=== PATIENT | female | born 1965 | race Caucasian/White ===

== ENCOUNTER → 2017-11-06 | Outpatient (CLI) | payer OTHER ==
--- NOTE | 2017-11-08 10:15 | MM ---
Reason for exam: screening (asymptomatic). Last mammogram was performed 5 years and 6 months ago. History: Patient is postmenopausal. Physical Findings: A clinical breast exam by your physician is recommended on an annual basis and results should be correlated with mammographic findings. MG Screening Mammo w CAD Bilateral CC and MLO view(s) were taken. Prior study comparison: May 11, 2012, mammogram, performed at [facility]. The breast tissue is heterogeneously dense. This may lower the sensitivity of mammography. Grouped punctate right breast calcifications were present previously, slightly increased. Bilateral breast nodularity is increased. ASSESSMENT: Incomplete: need additional imaging evaluation, BI-RAD 0 RECOMMENDATION: Special view mammogram of both breasts. If lesion persists on supplemental views, image directed ultrasound is recommended. [facility] will attempt to contact patient to return for supplemental views and ultrasound if indicated.
== END | disposition home or self-care (01) ==
LOC: RADMAMWWP 14:29
PROVIDERS: ATTEND Obstetrics & Gynecology
DX: Z12.31 Encounter for screening mammogram for malignant neoplasm of breast (principal)
CPT/HCPCS: 77067

== ENCOUNTER → 2017-11-16 | Outpatient (CLI) | payer OTHER ==
--- NOTE | 2017-11-16 14:47 | MM ---
Reason for exam: additional evaluation requested from abnormal screening. Last mammogram was performed less than 1 month ago. History: Patient is postmenopausal. Physical Findings: Nurse Summary: 1cm nodule in the right breast at 12 o'clock (nurse josselin). MG Work Up Mamm w CAD BILAT Bilateral spot compression CC, spot compression MLO, and LM view(s) were taken. Prior study comparison: November 06, 2017, bilateral MG screening mammo w CAD. May 11, 2012, mammogram, performed at [facility]. The breast tissue is heterogeneously dense. This may lower the sensitivity of mammography. Finding: There is a 8 mm circumscribed oval mass located 5 cm from the nipple in the upper inner quadrant, posterior position of the right breast consistent with cyst on ultrasound. Focal asymmetry x 2. There are a couple of subcentimeter densities on left CC, likely benign. Short term follow up recommended. New finding since May 11, 2012. These results were verbally communicated with the patient and result sheet given to the patient on 11/16/17. ASSESSMENT: Incomplete: need additional imaging evaluation, BI-RAD 0 RECOMMENDATION: Ultrasound of the right breast.
--- NOTE | 2017-11-16 14:48 | USB ---
Reason for exam: additional evaluation requested from abnormal screening. History: Patient is postmenopausal. US Breast Workup Limited RT Right limited breast ultrasound including focal area of concern, retroareolar and axilla demonstrates a 0.9 x 1.2 x 0.7cm cystic lesion at 1 o'clock. These results were verbally communicated with the patient and result sheet given to the patient on 11/16/17. ASSESSMENT: Benign, BI-RAD 2 RECOMMENDATION: Follow-up diagnostic mammogram in 6 months. (left breast)
== END | disposition home or self-care (01) ==
LOC: RADMAMWWP 12:59
PROVIDERS: ATTEND Obstetrics & Gynecology
DX: R92.8 Other abnormal and inconclusive findings on diagnostic imaging of breast (principal)
CPT/HCPCS: 77066

== ENCOUNTER → 2018-08-03 | Outpatient (CLI) | payer OTHER ==
--- NOTE | 2018-08-03 09:38 | MM ---
Reason for exam: follow-up at short interval from prior study. Last mammogram was performed 9 months ago. History: Patient is postmenopausal. Physical Findings: Nurse Summary: 1cm nodule in the right breast at 1 o'clock (nurse mj). MG Diagnostic Mammo w CAD CHUCKIE Bilateral CC and MLO view(s) were taken. Prior study comparison: November 16, 2017, bilateral MG work up mamm w CAD BILAT. November 06, 2017, bilateral MG screening mammo w CAD. Finding: There is a typically benign 10 mm equal density (isodense), circumscribed, partially obscured oval mass located 5 cm from the nipple in the upper outer quadrant, posterior position, previous cyst increased in size. There is no discrete abnormality including area of concern. Left upper inner quadrant patient reported palpable. New finding since November 16, 2017 and November 06, 2017. These results were verbally communicated with the patient and result sheet given to the patient on 08/03/18. ASSESSMENT: Incomplete: need additional imaging evaluation, BI-RAD 0 RECOMMENDATION: Ultrasound of both breasts.
--- NOTE | 2018-08-03 09:41 | USB ---
Reason for exam: additional evaluation requested from abnormal screening. History: Patient is postmenopausal. US Breast Limited BILAT Right limited breast ultrasound including focal area of concern, retroareolar and axilla demonstrates a 10 x 8 x 12mm lobular, mixed, hypoechoic lesion at 1 o'clock BB and a 9 x 4 x 9mm lobular, hypoechoic lesion at 1 o'clock. Left limited breast ultrasound including focal area of concern, retroareolar and axilla demonstrates no cystic or solid lesion seen. These results were verbally communicated with the patient and result sheet given to the patient on 08/03/18. ASSESSMENT: Suspicious, BI-RAD 4 RECOMMENDATION: Ultrasound core biopsy of the right breast. Manage on a clinical basis with regard to left palpable. (two adjacent lesions right breast) Called Dr. Sims with mammographic findings and has scheduled an appointment for the patient for 08/20/18 at 9:[address] Lal. Biopsy scheduled for 08/13/18 at 12:20. PRELIMINARY REPORT CALLED AND FAXED TO DR. LAL ON 08/03/18.
== END | disposition home or self-care (01) ==
LOC: RADMAMWWP 06:56
PROVIDERS: ATTEND Obstetrics & Gynecology
DX: R92.8 Other abnormal and inconclusive findings on diagnostic imaging of breast (principal)
CPT/HCPCS: 77066

== ENCOUNTER → 2018-08-13 | Day surgery (SDC) | payer OTHER ==
[2018-08-13 11:40] VITALS: RESP 16; BMI 25.4
[2018-08-13 13:07] VITALS: BP 128/82; PULSE 61; TEMP 97.8
--- NOTE | 2018-08-13 13:20 | USB ---
EXAMINATION TYPE: US biopsy breast VAD RT, MG diagnostic mammo RT wo CAD DATE OF EXAM: 08/13/2018 CLINICAL HISTORY: R92.8 ABNORMAL MAMMOGRAM. TECHNIQUE: Ultrasound guided core biopsy of right breast. COMPARISON: Mammogram and ultrasound dated 08/03/2018 FINDINGS: The procedure of ultrasound guided core biopsy was explained to the patient. Benefits, alternatives, and risks were discussed. An informed consent was then obtained. Preprocedural timeout was performed. The patient was placed in supine positioning for imaging and for the procedure. The overlying skin was prepped and draped in usual sterile fashion. 10 cc of 1% lidocaine was used as anesthetic into the skin and subcutaneous tissue the 2 adjacent masses at the 1:00 position in the right breast. Under ultrasound guidance, a 12-gauge vacuum assisted biopsy gun device was used to obtain 4 core samples of both masses. Following this, a ribbon-shaped biopsy marker was left at directly between the 2 masses (total dimension of both masses measures 2.4 cm). The patient tolerated the procedure well without any immediate complication. The patient was kept in the radiology department for short stay after the procedure and then discharged home in stable condition. Postprocedure mammogram demonstrates appropriate biopsy marker placement. IMPRESSION: Successful, uncomplicated ultrasound guided core biopsy of 2 adjacent masses at the 1:00 position in the right breast, full pathology results to follow. Pathology Results: Malignant RIGHT BREAST, 1:00, ULTRASOUND GUIDED CORE BIOPSY: Minute severely atypical cellular foci suspicious for poorly differentiated carcinoma, limited for further characterization. See note. Recommendation Surgical consult of the right breast. Excision and definitive surgical care. SCOOTER
== END ==
LOC: RADUSWWP 11:13
PROVIDERS: ATTEND Surgery
DX: N60.11 Diffuse cystic mastopathy of right breast (principal); R92.8 Other abnormal and inconclusive findings on diagnostic imaging of breast; Z88.0 Allergy status to penicillin; Z88.2 Allergy status to sulfonamides
CPT/HCPCS: 88305; 88342; 88341; 77065; 19083; A4648; J2001

== ENCOUNTER 2018-09-06 10:56 | Day surgery (SDC) | payer OTHER ==
[2018-09-04 08:28] VITALS: BMI 26.4
[~2018-09-06 10:56] MED LIST: DEXAMETHASONE SOD PHOSPHATE 10 MG/ML 1 ML VIAL IV ONE; KETOROLAC 30 MG/ML 1 ML VIAL IVP SCH; LACTATED RINGERS 1,000 ML IV SCH; LIDOCAINE 1% 20 ML VIAL (10MG/ML) FOR IV START INTRADERMA PRN; ONDANSETRON 4 MG/2 ML VIAL IVP ONE; ONDANSETRON 4 MG/2 ML VIAL IVP PRN; Pre Op ABX Message 1 EACH MISC MISCELLANE ONE; SCOPOLAMINE 1.5MG/72HR PATCH TRANSDERM ONE
[2018-09-06 11:45] LABS: Glucose,Whole Blood 111 mg/dL (75-99)
[2018-09-06] MEDS ORDERED: LORazepam 2 MG/ML INJ IV ONE (11:58)
[2018-09-06] MEDS ORDERED: LIDOCAINE 1% INJ 10MG/ML (20 ML MDV) SQ ONE (12:38)
[2018-09-06] MEDS ORDERED: SUCCINYLCHOLINE CHLORIDE 100 MG/5 ML SYR IV ONE (13:30)
[2018-09-06] MEDS ORDERED: HYDROmorphone (PF) 1 MG/ML ONE (13:30)
[2018-09-06] MEDS ORDERED: fentaNYL (PF) 50 MCG/ML 2 ML AMP ONE (13:30)
[2018-09-06] MEDS ORDERED: LIDOCAINE 1% INJ 10MG/ML (20 ML MDV) ONE (13:30)
[2018-09-06] MEDS ORDERED: PROPOFOL 10 MG/ML 20 ML VIAL IV ONE (13:30)
[2018-09-06] MEDS ORDERED: MIDAZOLAM 2 MG/2 ML VIAL ONE (13:30)
--- NOTE | 2018-09-06 13:33 | NM ---
EXAMINATION TYPE: NM sentinel node injection DATE OF EXAM: 09/06/2018 COMPARISON: 08/13/2018 HISTORY: Right breast cancer TECHNIQUE AND FINDINGS: The procedure of sentinel lymph node injection was explained to the patient. The benefits, alternatives, and risks were discussed. An informed consent was then obtained. Overlying skin is cleaned with sterile alcohol. Following this, 501 uCi Tc99m Tilmanocept was inject ed in the upper outer aspect of the right nipple intradermally. The patient tolerated the procedure well without any immediate complication. The patient was kept in the radiology department for short stay after the procedure and then taken to surgery for surgical p rocedure what is presumed intraoperative gamma probe will be used for sentinel lymph node detection. IMPRESSION: Right breast radiotracer injection for sentinel node localization as above.
[2018-09-06] MEDS ORDERED: CLINDAMYCIN 150 MG/ML 4 ML VIAL IVPB ONE (13:45)
[2018-09-06] MEDS ORDERED: LIDOCAINE (PF) 10 MG/ML 2 ML VIAL SQ ONE ×2 (13:55)
[2018-09-06 15:11] VITALS: TEMP 97
--- NOTE | 2018-09-06 15:11 | P.OP ---
Date of Procedure: 09/06/18 Preoperative Diagnosis: Malignancy of right breast Postoperative Diagnosis: Malignancy of right breast Procedure(s) Performed: Right breast lumpectomy with needle localization Hammon node biopsy Anesthesia: GARRETTA Surgeon: Evelyn Scanlon Pathology: other (Hammon node #1 and #2, right breast mass, Additional superior lateral margin) Condition: stable Disposition: same day Indications for Procedure: 52-year-old female was found to have an abnormal mammogram and further imaging and biopsy were recommended. On biopsy, the patient was found to have an invasive type of cancer, however type was uncertain. The patient's case was discussed in tumor board. The patient was offered multiple options in her care. Option of additional core biopsy for further ER and NE testing was offered to the patient. The patient opted instead for a lumpectomy with sentinel node biopsy. She was explained the risks, benefits and alternatives to the procedure. She did provide consent prior to attending the operating suite. Operative Findings: Palpable right breast mass Hammon node 2, both negative on frozen section per pathology Description of Procedure: The patient was brought into the operating suite and placed in supine position on the operating table. Sedation was provided by anesthesia and the patient underwent endotracheal intubation. Methylene blue was then infused inferior areolar. The breast was palpated and massaged after this was placed. The patient was then prepped and draped in regular sterile fashion. A probe was used to elicit the signal from the right axilla. An incision was made over the active site. Dissection was carried towards the signal using the probe and electrocautery. The lymph node was clearly visualized and was noted to be blue. This was noted to have a very strong signal. Additional small lymph node was also noted and excised. Hemostasis was maintained. The right axilla was then packed with a Ray-Augustus and attention was turned to the right breast. A curvilinear incision was made at the needle localization site. Dissection was carried towards the breast tissue using electrocautery. The localized wire was then grasped and removed through the insertion site on the skin. Dissection was then carried in a 360 manner towards the tip of the needle. The palpable mass was clearly noted. The lesion was then excised using electrocautery. The lesion was tagged with a short superior and a long lateral suture. On palpation, the superior lateral margin was noted to have some scarring, likely secondary to the breast biopsy. Further excision was made of the site and was sent as a superior lateral margin. Hemostasis was maintained. Incision site was closed using a 30 and 4-0 Vicryl subcuticular suture. Ray-Augustus was removed from the right axilla and hemostasis was noted to be maintained. The right axillary incision was also closed with a 3-0 and 4-0 Vicryl subcuticular suture in layers. Sterile dressing was applied. The patient was awakened in the operating suite and taken to postanesthesia care unit in stable condition.
--- NOTE | 2018-09-06 15:15 | USB ---
EXAMINATION TYPE: US breast localization RT, MG surgical specimen RT, MG diagnostic mammo RT wo CAD DATE OF EXAM: 09/06/2018 COMPARISON: 08/13/2018 CLINICAL HISTORY: R92.8 ABNORMAL MAMMOGRAM. FINDINGS: The procedure of needle localization with wire placement and than surgical excision was explained to the patient. Benefits, alternatives, and risks were discussed. An informed consent was then obtained. Preprocedural timeout was performed. The masses measuring 2.4 cm in total were localized sonographically at the 1:00 position in the right breast. The overlying skin was prepped and draped in usual sterile fashion. 10 cc of 1% lidocaine was used as anesthetic into the skin and subcutaneous tissue up to the level of area of concern. A 7 cm needle was used. It was placed under direct sonographic guidance with confirmatory images saved. At this point, wire was placed and the needle was withdrawn. The wire was fixed to patient's skin. Subsequent CC and ML mammograms show the needle to be in satisfactory position relative to the targeted area. Images were marked for surgeon. The patient tolerated the procedure well without any immediate complication. The patient was kept in the radiology department for short stay after the procedure and then taken to surgery for surgical excision. Targeted density, ribbon-shaped biopsy marker and wire are identified in specimen mammogram. The patient was kept in hospital for short stay after the procedure and then discharged home in stable condition. IMPRESSION: Successful, uncomplicated needle localization with wire placement and surgical excision of the biopsy-proven right breast cancer and ribbon-shaped biopsy marker, full pathology results to follow. Pathology Results: Malignant A. SENTINEL LYMPH NODE #1, BIOPSY: One benign lymph node as examined by H+E as well as appropriately controlled immunohistochemical studies for cytokeratin 7 and CITLALY. B. SENTINEL LYMPH NODE #2, BIOPSY: One benign lymph node as examined by H+E as well as appropriately controlled immunohistochemical studies for cytokeratin 7 and CITLALY. C. RIGHT BREAST, LEFT SUPERIOR LATERAL MARGIN, BIOPSY: Benign fibroadipose tissue. D. RIGHT BREAST MASS, WIRE LOCALIZATION LUMPECTOMY: 2.4 x 1.2 x 0.7 cm high grade ductal carcinoma associated with lymphocytic response. Completely excised (closest yellow inked medial margin is 1.5 mm). Surrounding breast parenchyma - negative for duct carcinoma. See Surgical Pathology Cancer Case Summary. Recommendation Surgical consult of the right breast. (Continued surgical care). MTDD
[2018-09-06] MEDS: HYDROmorphone 0.5 MG/0.5 ML SYRINGE IVP PRN ×2 (15:20→15:24)
[2018-09-06] MEDS ORDERED: LACTATED RINGERS 1,000 ML IV ONE (15:43)
[2018-09-06] MEDS ORDERED: HYDROcodone/APAP 5-325MG 1 EACH TAB PO ONE (15:55)
[2018-09-06 16:08] VITALS: RESP 18
[2018-09-06] MEDS ORDERED: METOCLOPRAMIDE 5 MG/ML 2 ML VIAL IVP ONE (16:24)
[2018-09-06 16:54] VITALS: BP 118/76; PULSE 60
== END 2018-09-06 17:30 | disposition home or self-care (01) ==
LOC: OR 10:56
PROVIDERS: ATTEND Surgery
DX: C50.211 Malignant neoplasm of upper-inner quadrant of right female breast (principal); J45.909 Unspecified asthma, uncomplicated; M06.9 Rheumatoid arthritis, unspecified; M19.90 Unspecified osteoarthritis, unspecified site; K21.9 Gastro-esophageal reflux disease without esophagitis; M79.7 Fibromyalgia; K58.9 Irritable bowel syndrome, unspecified; F32.9 Major depressive disorder, single episode, unspecified; Z90.49 Acquired absence of other specified parts of digestive tract; Z79.52 Long term (current) use of systemic steroids; Z79.899 Other long term (current) drug therapy; Z88.0 Allergy status to penicillin; Z88.2 Allergy status to sulfonamides
CPT/HCPCS: 19301; 38525; 19285; 38792; 88307; 88331; 88342; 88341; 77065; 76098; A9520; J2250; J2060; J2001 ×2; J2765; J2405; J3010; J1170 ×2; J0330; J2704

== ENCOUNTER 2018-09-25 06:20 | Day surgery (SDC) | payer OTHER ==
[2018-09-21 17:37] VITALS: BMI 27.8
[~2018-09-25 06:20] MED LIST changes: -DEXAMETHASONE SOD PHOSPHATE 10 MG/ML 1 ML VIAL IV ONE; +HEPARIN SODIUM,PORCINE 5,000 UNIT/ML 1 ML VIAL SQ ONE; -KETOROLAC 30 MG/ML 1 ML VIAL IVP SCH; +MORPHINE SULFATE 2 MG/ML SYRINGE IV PRN; -SCOPOLAMINE 1.5MG/72HR PATCH TRANSDERM ONE
[2018-09-25 07:01] VITALS: RESP 18; TEMP 98.6
[2018-09-25 07:16] LABS: Glucose,Whole Blood 109 mg/dL (75-99)
[2018-09-25] MEDS ORDERED: MIDAZOLAM 2 MG/2 ML VIAL ONE (07:21)
[2018-09-25] MEDS ORDERED: fentaNYL (PF) 50 MCG/ML 2 ML AMP ONE (07:21)
[2018-09-25] MEDS ORDERED: LIDOCAINE 1% INJ 10MG/ML (20 ML MDV) ONE (07:21)
[2018-09-25] MEDS ORDERED: KETAMINE 10 MG/ML 20 ML VIAL ONE (07:21)
[2018-09-25] MEDS ORDERED: PROPOFOL 10 MG/ML 20 ML VIAL IV ONE (07:21)
[2018-09-25] MEDS ORDERED: BUPIVACAINE (PF) 0.25% 30 ML VIAL SQ ONE (07:51)
[2018-09-25] MEDS ORDERED: HEPARIN SODIUM,PORCINE 100 UNIT/ML 5 ML VIAL IV ONE ×2 (07:51)
--- NOTE | 2018-09-25 08:29 | P.OP ---
Date of Procedure: 09/25/18 Preoperative Diagnosis: Invasive ductal breast carcinoma Postoperative Diagnosis: Invasive ductal breast carcinoma Procedure(s) Performed: Mediport placement with fluoroscopic guidance Anesthesia: MAC Surgeon: Evelyn Scanlon Pathology: none sent Condition: stable Disposition: same day Indications for Procedure: 52-year-old female with recent diagnosis of invasive ductal breast carcinoma, triple negative. Secondary to this, patient has undergone lumpectomy with sentinel node biopsy. After evaluation with oncology, the patient has been recommended to have a Mediport placement. She presents today for Mediport placement. Risks, benefits and alternatives were provided to the patient. She did provide consent prior to attending the operating suite. Operative Findings: Mediport in appropriate position under fluoroscopy imaging. Appropriate flush and withdrawal from Mediport Description of Procedure: The patient was brought into the operating suite and placed in supine position on the operating table. The patient was then sedated by anesthesia and prepped and draped in regular sterile fashion. The left subclavian vein was accessed with an introducer needle and dark nonpulsatile blood was withdrawn. A guidewire was then placed and was noted in appropriate position based on fluoroscopy. An incision was made just below the guidewire entrance site to create a pocket for the port. Dissection was carried towards the prepectoral fascia and an appropriate amount of space was created for port placement. A small incision was made at the guidewire entrance site and a dilator sheath was placed over the guidewire under fluoroscopic guidance. A catheter was then placed through the dilator sheath and was noted to be in appropriate placement based on fluoroscopy. The catheter was then attached to the port and locked into place. The port was placed into the created pocket. Appropriate flush and withdrawal was noted using a Lopez needle. The port was then secured into place using 2-0 Prolene suture 2. Heparin lock was then placed. The incision site was closed in layers with 3-0 and 4-0 Vicryl suture. The patient was awakened in the operating suite and taken to postanesthesia care unit in stable condition.
--- NOTE | 2018-09-25 09:01 | XR ---
EXAMINATION TYPE: XR chest 1V portable DATE OF EXAM: 09/25/2018 COMPARISON: NONE HISTORY: Status post Mediport placement TECHNIQUE: Single frontal view of the chest is obtained. FINDINGS: There is a Mediport in the left upper chest with catheter coursing via left subclavian mandeep alvarez to the level of the confluence of the innominate veins. No evident pneumothorax or pleural effu yomaira. Heart is within normal limits. IMPRESSION: No evident calcifications status post Mediport placement. Tip as described.
[2018-09-25 09:25] VITALS: BP 130/76; PULSE 67
--- NOTE | 2018-09-25 11:39 | FL ---
Fluoroscopy HISTORY: Port-A-Cath insertion 27 seconds fluoroscopy time supplied to the referring clinician. 1 intraoperative C-arm images docum ent the procedure. See dictated report from general surgery.
== END 2018-09-25 09:39 | disposition home or self-care (01) ==
LOC: OR 06:20
PROVIDERS: ATTEND Surgery
DX: C50.911 Malignant neoplasm of unspecified site of right female breast (principal); Z88.0 Allergy status to penicillin; Z88.2 Allergy status to sulfonamides; F32.9 Major depressive disorder, single episode, unspecified; Z90.49 Acquired absence of other specified parts of digestive tract; Z17.1 Estrogen receptor negative status [ER-]
CPT/HCPCS: 77001; 71045; 36571; C1788; J2250; J1644; J1642; J2405; J2001; J3010; J2704

== ENCOUNTER → 2018-09-26 | Outpatient (CLI) | payer OTHER ==
--- NOTE | 2018-09-27 09:56 | ECHOF ---
Referral Reason:Breast ca C50.411, Z01.818 Pre chemo MEASUREMENTS -------- HEIGHT: 165.1 cm WEIGHT: 75.7 kg BP: RVIDd: 2.5 cm (< 3.3) IVSd: 1.0 cm (0.6 - 1.1) LVIDd: 3.5 cm (3.9 - 5.3) LVPWd: 1.1 cm (0.6 - 1.1) IVSs: 1.6 cm LVIDs: 1.6 cm LVPWs: 1.6 cm LAESV Index (A-L): 25.48 ml/m Ao Diam: 2.4 cm (2.0 - 3.7) AV Cusp: 1.9 cm (1.5 - 2.6) LA Diam: 3.6 cm (2.7 - 3.8) MV EXCURSION: 14.924 mm (> 18.000) MV EF SLOPE: 100 mm/s (70 - 150) EPSS: 0.4 cm MV E Azar: 1.21 m/s MV DecT: 163 ms MV A Azar: 1.17 m/s MV E/A Ratio: 1.04 RAP: 5.00 mmHg RVSP: 19.40 mmHg FINDINGS -------- Sinus rhythm. This was a technically good study. The left ventricular size is normal. Left ventricular wall thickness is normal. Overall left vent ricular systolic function is normal with, an EF between 55 - 60 %. The diastolic filling pattern is normal for the age of the patient 13.63. The right ventricle is normal in size. The left atrial size is normal. Normal LA size by volume 22+/-6 ml/m2. The right atrial size is normal. Interatrial and interventricular septum intact. The aortic valve is trileaflet and appears structurally normal. The mitral valve is normal. Mild mitral regurgitation is present. The tricuspid valve appears structurally normal. Trace tricuspid regurgitation present. Right ariana tricular systolic pressure is normal at < 35 mmHg. There is no pulmonic regurgitation present. The aortic root size is normal. Normal inferior vena cava with normal inspiratory collapse consistent with estimated right atrial pre ssure of 5 mmHg. There is no pericardial effusion. CONCLUSIONS -------- 1. Sinus rhythm. 2. This was a technically good study. 3. The left ventricular size is normal. 4. Left ventricular wall thickness is normal. 5. Overall left ventricular systolic function is normal with, an EF between 55 - 60 %. 6. The diastolic filling pattern is normal for the age of the patient 13.63 7. The right ventricle is normal in size. 8. The left atrial size is normal. 9. Normal LA size by volume 22+/-6 ml/m2. 10. The right atrial size is normal. 11. Interatrial and interventricular septum intact. 12. The aortic valve is trileaflet and appears structurally normal. 13. The mitral valve is normal. 14. Mild mitral regurgitation is present. 15. The tricuspid valve appears structurally normal. 16. Trace tricuspid regurgitation present. 17. Right ventricular systolic pressure is normal at < 35 mmHg. 18. There is no pulmonic regurgitation present. 19. The aortic root size is normal. 20. Normal inferior vena cava with normal inspiratory collapse consistent with estimated right atrial pressure of 5 mmHg. 21. There is no pericardial effusion. TREE SHEAR OPERATOR: Joselyn Berg RDCS
== END | disposition home or self-care (01) ==
LOC: RADECHMAIN 15:22
PROVIDERS: ATTEND Internal Medicine Hematology & Oncology
DX: Z01.818 Encounter for other preprocedural examination (principal); I34.0 Nonrheumatic mitral (valve) insufficiency; C50.411 Malignant neoplasm of upper-outer quadrant of right female breast; Z88.0 Allergy status to penicillin; Z88.2 Allergy status to sulfonamides
CPT/HCPCS: 93306

== ENCOUNTER → 2019-04-18 | Day surgery (SDC) | payer OTHER ==
[2019-04-17 08:59] VITALS: BMI 31.4
[~2019-04-18] MED LIST changes: +GLYCOPYRROLATE 0.2 MG/ML 2 ML VIAL ONE; -HEPARIN SODIUM,PORCINE 5,000 UNIT/ML 1 ML VIAL SQ ONE; +HYDROmorphone 0.5 MG/0.5 ML SYRINGE IVP PRN; +KETAMINE 10 MG/ML 20 ML VIAL ONE; +LIDOCAINE (PF) 10 MG/ML 5ML AMP SQ ONE; +LIDOCAINE 1% INJ 10MG/ML (20 ML MDV) ONE; +MIDAZOLAM 2 MG/2 ML VIAL ONE; -MORPHINE SULFATE 2 MG/ML SYRINGE IV PRN; -ONDANSETRON 4 MG/2 ML VIAL IVP PRN; +PROPOFOL 10 MG/ML 20 ML VIAL IV ONE; -Pre Op ABX Message 1 EACH MISC MISCELLANE ONE; +fentaNYL (PF) 50 MCG/ML 2 ML AMP ONE
[2019-04-18 12:27] LABS: Glucose,Whole Blood 107 mg/dL (75-99)
[2019-04-18 12:35] VITALS: TEMP 97.3
--- NOTE | 2019-04-18 13:34 | P.OP ---
Date of Procedure: 04/18/19 Preoperative Diagnosis: Breast cancer Postoperative Diagnosis: Breast cancer Procedure(s) Performed: Mediport removal Anesthesia: MAC Surgeon: Evelyn Scanlon Pathology: other (Mediport) Condition: stable Disposition: same day Indications for Procedure: 53-year-old female with recent history of breast cancer. She is no longer undergoing chemotherapy and has requested removal of her Mediport. This has been cleared by her oncologist. The patient was explained the risks, benefits and alternatives and did provide consent prior to attending the operating suite. Operative Findings: Mediport intact Description of Procedure: The patient was brought to the operating suite and placed in supine position on the operating table. Sedation was provided by anesthesia. The patient was then prepped and draped in regular sterile fashion. Local anesthetic was administered. An incision was made over the previous incision scar. Dissection was carried to the palpable Mediport. The catheter was clearly visualized. A 3-0 [id number] suture was used over the catheter puncture site and was tied down as the catheter was removed. hemostasis was maintained with cautery and the port was removed in its entirety. Irrigation was used in the wound. The wound was then closed with 4-0 Vicryl subcuticular suture. Sterile dressing was applied. The patient was awakened in the operating suite and taken to postanesthesia care unit in stable condition.
[2019-04-18 14:13] VITALS: BP 112/71; PULSE 51; RESP 17
== END | disposition home or self-care (01) ==
LOC: OR 11:48
PROVIDERS: ATTEND Surgery
DX: C50.911 Malignant neoplasm of unspecified site of right female breast (principal); J45.909 Unspecified asthma, uncomplicated; F32.9 Major depressive disorder, single episode, unspecified; F41.9 Anxiety disorder, unspecified; K21.9 Gastro-esophageal reflux disease without esophagitis; M19.90 Unspecified osteoarthritis, unspecified site; M06.9 Rheumatoid arthritis, unspecified; Z92.21 Personal history of antineoplastic chemotherapy; Z92.3 Personal history of irradiation; G62.9 Polyneuropathy, unspecified; Z88.0 Allergy status to penicillin; Z88.2 Allergy status to sulfonamides; Z91.09 Other allergy status, other than to drugs and biological substances; Z79.899 Other long term (current) drug therapy; Z79.52 Long term (current) use of systemic steroids; Z79.1 Long term (current) use of non-steroidal anti-inflammatories (NSAID); Z98.890 Other specified postprocedural states
CPT/HCPCS: 36590; J2250; J0690; J2405; J2001 ×2; J3010; J2704

== ENCOUNTER → 2019-04-26 | Outpatient (CLI) | payer OTHER ==
--- NOTE | 2019-04-26 13:20 | MR ---
EXAMINATION TYPE: MR brain wo/w con DATE OF EXAM: 04/26/2019 COMPARISON: None HISTORY: Headaches / Breast Cancer CONTRAST: Performed utilizing 8.5 mL intravenous Gadavist gadolinium contrast. TECHNIQUE: Multiplanar, multiecho imaging on a 3.0 Paula magnet is performed through the brain. Stud y is performed within 24 hours of arrival to the hospital. The craniovertebral junction is normal. The pituitary is normal. Diffusion-weighted imaging is performed. No abnormal hyperintensity is present to suggest an acute i ntracranial infarct or acute ischemic change. There are couple of punctate white matter changes present which are nonspecific this includes a 0.6 c m area within the right parietal centrum semiovale. Series 501 image 26. Some scattered mild periventricular white matter hyperintensity is present most likely related to wolf rovascular ischemic change. Ventricles and sulci are appropriate for the patient age. No suspicious enhancement to suggest metastatic disease is evident. No abnormal areas of enhancement within the brain are identified. IMPRESSIONS: 1. No suspicious area to suggest metastatic disease. 2. Mild periventricular and subcortical white matter changes, more likely related to microvascular is chemic change.
== END | disposition home or self-care (01) ==
LOC: RADMRIMAIN 12:07
PROVIDERS: ATTEND Internal Medicine Hematology & Oncology
DX: C50.411 Malignant neoplasm of upper-outer quadrant of right female breast (principal); G44.52 New daily persistent headache (NDPH); R90.89 Other abnormal findings on diagnostic imaging of central nervous system
CPT/HCPCS: 70553; A9585

== ENCOUNTER → 2019-09-30 | Outpatient (CLI) | payer OTHER ==
--- NOTE | 2019-09-30 08:56 | MM ---
Reason for exam: additional evaluation requested from prior study. Last mammogram was performed 1 year and 1 month ago. History: Patient is postmenopausal and has history of breast cancer at age 52. Malignant US breast localization RT of the right breast, September 06, 2018. 2 lumpectomies of the right breast, September 06, 2018. Malignant US biopsy breast VAD RT of the right breast, August 13, 2018. Physical Findings: Nurse did not find any significant physical abnormalities on exam. MG Diagnostic Mammo w CAD CHUCKIE Bilateral CC and MLO view(s) were taken. XCCL view(s) were taken of the right breast. Prior study comparison: September 06, 2018, right breast MG diagnostic mammo RT wo CAD. August 13, 2018, right breast MG diagnostic mammo RT wo CAD. No significant new findings when compared with previous films. These results were verbally communicated with the patient and result sheet given to the patient on 09/30/19. ASSESSMENT: Benign, BI-RAD 2 RECOMMENDATION: Follow-up diagnostic mammogram of both breasts in 1 year.
== END ==
LOC: RADMAMWWP 07:11
PROVIDERS: ATTEND Radiology Radiation Oncology
DX: C50.211 Malignant neoplasm of upper-inner quadrant of right female breast (principal); Z92.3 Personal history of irradiation; Z17.1 Estrogen receptor negative status [ER-]
CPT/HCPCS: 77066

== ENCOUNTER → 2020-03-24 | Outpatient (CLI) | payer OTHER ==
--- NOTE | 2020-03-25 09:27 | USB ---
Reason for exam: clinical finding. History: Patient is postmenopausal and has history of breast cancer at age 52. Malignant US breast localization RT of the right breast, September 06, 2018. 2 lumpectomies of the right breast, September 06, 2018. Malignant US biopsy breast VAD RT of the right breast, August 13, 2018. Indicated problem(s): pain in the right breast. Physical Findings: Nurse did not find any significant physical abnormalities on exam. US Breast RT Right complete breast ultrasound includes all four quadrants, the retroareolar region and axilla. Finding demonstrates an irregular, hypoechoic lesion at 1 o'clock compatible with scar and a 0.9 x 0.5 x 0.4cm lymph node at the axilla. These results were verbally communicated with the patient and result sheet given to the patient on 03/24/20. ASSESSMENT: Incomplete: need additional imaging evaluation, BI-RAD 0 RECOMMENDATION: Special view mammogram of the right breast.
--- NOTE | 2020-03-25 09:28 | MM ---
Reason for exam: clinical finding. Last mammogram was performed 6 months ago. History: Patient is postmenopausal and has history of breast cancer at age 52. Malignant US breast localization RT of the right breast, September 06, 2018. 2 lumpectomies of the right breast, September 06, 2018. Malignant US biopsy breast VAD RT of the right breast, August 13, 2018. MG Diagnostic Mammo RT w CAD CC and MLO view(s) were taken of the right breast. Prior study comparison: September 30, 2019, bilateral MG diagnostic mammo w CAD CHUCKIE. September 06, 2018, right breast MG diagnostic mammo RT wo CAD. The breast tissue is heterogeneously dense. This may lower the sensitivity of mammography. Post surgical and post therapy change right breast. Density posterior superior right MLO is unchanged for 6 months. These results were verbally communicated with the patient and result sheet given to the patient on 03/24/20. ASSESSMENT: Probably benign, BI-RAD 3 RECOMMENDATION: Follow-up diagnostic mammogram of both breasts in 6 months.
== END | disposition home or self-care (01) ==
LOC: RADUSWWP 15:01
PROVIDERS: ATTEND Internal Medicine Hematology & Oncology
DX: N63.10 Unspecified lump in the right breast, unspecified quadrant (principal); N64.4 Mastodynia; R92.8 Other abnormal and inconclusive findings on diagnostic imaging of breast
CPT/HCPCS: 77065

== ENCOUNTER → 2020-09-30 | Outpatient (CLI) | payer OTHER ==
--- NOTE | 2020-09-30 12:06 | USB ---
EXAMINATION TYPE: US breast limited RT DATE OF EXAM: 09/30/2020 COMPARISON: Mammogram same date, ultrasound 03/24/2020 CLINICAL HISTORY: r92.8 abnormal mammogram. Targeted right breast ultrasound was performed from 12-3 o'clock and in the retroareolar region and a xilla. In the right breast at 2:00 in the region of postsurgical scar, there is a 0.8 x 0.8 x 2.1 cm irregul ar hypoechoic lesion which corresponds to the area of asymmetry on mammogram and has enlarged on ultr asound since the prior examination. Ultrasound-guided biopsy is recommended. IMPRESSION: Ultrasound-guided biopsy is recommended for the hypoechoic irregular mass at 2:00 in the right breast in the region of postsurgical scar. BI-RADS 4, suspicious.
--- NOTE | 2020-09-30 13:44 | MM ---
Reason for exam: follow-up at short interval from prior study. Last mammogram was performed 6 months ago. History: Patient is postmenopausal and has history of breast cancer at age 52. Malignant US breast localization RT of the right breast, September 06, 2018. 2 lumpectomies of the right breast, September 06, 2018. Malignant US biopsy breast VAD RT of the right breast, August 13, 2018. Physical Findings: Nurse did not find any significant physical abnormalities on exam. MG Diagnostic Mammo w CAD CHUCKIE Bilateral CC and MLO view(s) were taken. Prior study comparison: March 24, 2020, right breast MG diagnostic mammo RT w CAD. September 30, 2019, bilateral MG diagnostic mammo w CAD CHUCKIE. November 06, 2017, bilateral MG screening mammo w CAD. There are scattered fibroglandular densities. There is an asymmetry in the right upper inner breast at the site of scar at middle depth and ultrasound is recommended. ASSESSMENT: Incomplete: need additional imaging evaluation, BI-RAD 0 RECOMMENDATION: Ultrasound of the right breast.
== END | disposition home or self-care (01) ==
LOC: RADMAMWWP 10:14
PROVIDERS: ATTEND Radiology Radiation Oncology
DX: N63.10 Unspecified lump in the right breast, unspecified quadrant (principal); N64.89 Other specified disorders of breast; Z78.0 Asymptomatic menopausal state; Z80.3 Family history of malignant neoplasm of breast; Z85.3 Personal history of malignant neoplasm of breast
CPT/HCPCS: 77066

== ENCOUNTER → 2020-10-15 | Day surgery (SDC) | payer OTHER ==
[2020-10-15 14:13] VITALS: BP 102/68; PULSE 60; RESP 16; TEMP 98.4
--- NOTE | 2020-10-15 14:45 | USB ---
EXAMINATION TYPE: US biopsy breast VAD RT, MG diagnostic mammo RT wo CAD DATE OF EXAM: 10/15/2020 CLINICAL HISTORY: C50.211 history of right-sided breast cancer 2019,R92.8 Abnormal recent ultrasound. Enlarging lesion on ultrasound. TECHNIQUE: Ultrasound guided core biopsy of right breast with clip placement and follow-up diagnostic two-view mammogram. COMPARISON: Ultrasound September 30, 2020 and older studies FINDINGS: The procedure of ultrasound guided core biopsy was explained to the patient. Benefits, alt ernatives, and risks were discussed. An informed consent was then obtained. The patient was placed in supine positioning for imaging and for the procedure. Preprocedure ultraso und redemonstrates vague avascular irregular approximately 8 mm hypoechoic area 2:00 position zone BC right breast. The overlying skin was prepped and draped in usual sterile fashion. Lidocaine is used as anesthetic into the skin and subcutaneous tissue up to area of concern in the right breast. Under ultrasound guidance, a faecium assisted biopsy gun device was used to obtain 2 core samples. F ollowing this, a biopsy clip was left in lesion. The patient tolerated the procedure well without any immediate complication. The patient was kept in the radiology department for short stay after the procedure and then discharged home in stable condi tion. Post procedure mammogram shows successful deployment of clip corresponding to areas of scar and treat ment change right breast. IMPRESSION: Successful, uncomplicated ultrasound guided core biopsy of area of concern in the right b reast, full pathology results to follow. Low index of suspicion noted at time of procedure.
== END ==
LOC: RADUSWWP 11:46
PROVIDERS: ATTEND Radiology Radiation Oncology
DX: N60.31 Fibrosclerosis of right breast (principal); R92.8 Other abnormal and inconclusive findings on diagnostic imaging of breast; Z88.0 Allergy status to penicillin; Z88.2 Allergy status to sulfonamides; Z91.09 Other allergy status, other than to drugs and biological substances
CPT/HCPCS: 88305; 77065; 19083; A4648; J2001

== ENCOUNTER → 2021-01-14 | Outpatient (CLI) | payer OTHER ==
--- NOTE | 2021-01-15 10:38 | USB ---
Reason for exam: follow-up at short interval from prior study. History: Patient is postmenopausal and has history of breast cancer at age 52. Benign US biopsy breast VAD RT of the right breast, October 15, 2020. Malignant US breast localization RT of the right breast, September 06, 2018. 2 lumpectomies of the right breast, September 06, 2018. Malignant US biopsy breast VAD RT of the right breast, August 13, 2018. Physical Findings: Nurse did not find any significant physical abnormalities on exam. US Breast LT Technologist: Gregoria Hathaway Left complete breast ultrasound includes all four quadrants, the retroareolar region and axilla. Finding demonstrates a 0.5 x 0.7 x 0.3cm oval, solid, hyperechoic lesion at 10 o'clock. This shows some compressibility and a lipoma is favored. As the region was palpable by the patient, 6 month follow up recommended. These results were verbally communicated with the patient and result sheet given to the patient on 01/14/21. ASSESSMENT: Probably benign, BI-RAD 3 RECOMMENDATION: Ultrasound of the left breast in 6 months.
== END | disposition home or self-care (01) ==
LOC: RADUSWWP 14:40
PROVIDERS: ATTEND Internal Medicine Hematology & Oncology
DX: N64.59 Other signs and symptoms in breast (principal); Z78.0 Asymptomatic menopausal state; Z85.3 Personal history of malignant neoplasm of breast

== ENCOUNTER → 2021-04-14 | Outpatient (CLI) | payer OTHER ==
--- NOTE | 2021-04-14 10:28 | MM ---
Reason for exam: follow-up at short interval from prior study. Last mammogram was performed 6 months ago. History: Patient is postmenopausal and has history of breast cancer at age 52. Benign US biopsy breast VAD RT of the right breast, October 15, 2020. Malignant US breast localization RT of the right breast, September 06, 2018. 2 lumpectomies of the right breast, September 06, 2018. Malignant US biopsy breast VAD RT of the right breast, August 13, 2018. Physical Findings: Nurse did not find any significant physical abnormalities on exam. MG 3D Diag Mammo W/Cad CHUCKIE Bilateral CC and MLO view(s) were taken. Prior study comparison: October 15, 2020, right breast MG diagnostic mammo RT wo CAD. September 30, 2020, bilateral MG diagnostic mammo w CAD CHUCKIE. The breast tissue is heterogeneously dense. This may lower the sensitivity of mammography. Previous mammotome biopsy in the right breast. There is no discrete abnormality including area of concern. No significant new findings when compared with previous films. These results were verbally communicated with the patient and result sheet given to the patient on 04/14/21. ASSESSMENT: Benign, BI-RAD 2 RECOMMENDATION: Routine screening mammogram of both breasts in 1 year.
== END | disposition home or self-care (01) ==
LOC: RADMAMWWP 09:31
PROVIDERS: ATTEND Radiology Radiation Oncology
DX: C50.211 Malignant neoplasm of upper-inner quadrant of right female breast (principal); Z78.0 Asymptomatic menopausal state
CPT/HCPCS: 77062; 77066

== ENCOUNTER → 2021-05-04 | Day surgery (SDC) | payer OTHER ==
[2021-04-30 14:22] VITALS: BMI 30.4
[~2021-05-04] MED LIST changes: -GLYCOPYRROLATE 0.2 MG/ML 2 ML VIAL ONE; -HYDROmorphone 0.5 MG/0.5 ML SYRINGE IVP PRN; -KETAMINE 10 MG/ML 20 ML VIAL ONE; -LIDOCAINE (PF) 10 MG/ML 5ML AMP SQ ONE; -LIDOCAINE 1% 20 ML VIAL (10MG/ML) FOR IV START INTRADERMA PRN; -LIDOCAINE 1% INJ 10MG/ML (20 ML MDV) ONE; -MIDAZOLAM 2 MG/2 ML VIAL ONE; -ONDANSETRON 4 MG/2 ML VIAL IVP ONE; -fentaNYL (PF) 50 MCG/ML 2 ML AMP ONE
[2021-05-04 10:44] VITALS: TEMP 98.5
[2021-05-04 10:55] LABS: Glucose,Whole Blood 100 mg/dL (75-99)
--- NOTE | 2021-05-04 11:24 | P.GSHP ---
History of Present Illness H&P Date: 05/04/21 Chief Complaint: Colon cancer screening 55-year-old female here today for colonoscopy. She has not had one previously. No bowel complaints. No rectal bleeding. No family history of colon cancer. Patient with personal history of breast cancer. Past Medical History Past Medical History: Asthma, Cancer, Fibromyalgia, GERD/Reflux, Osteoarthritis (OA), Rheumatoid Arthritis (RA), Skin Disorder Additional Past Medical History / Comment(s): IBS, hiatal hernia, eczema, RT Breast cancer-chemo finished 01/2019 and radiation finished Mar 2019, hx spinal stenosis, neuropathy flex feet, hx migraines, foot drop rt foot History of Any Multi-Drug Resistant Organisms: None Reported Past Surgical History: Breast Surgery, Section, Cholecystectomy, Orthopedic Surgery Additional Past Surgical History / Comment(s): Hx. eye surgery age 5 , exploratory laparoscopy, flex carpal tunnel release, cyst off left thumb and rt little finger, cervical fusion, rt breast biopsy. RT Breast Lumpectomy, Lymph Node Bx, mediport insertion/later removed, joint removed base of left thumb Past Anesthesia/Blood Transfusion Reactions: Motion Sickness Smoking Status: Never smoker - Past Family History Mother Family Medical History: Cancer Additional Family Medical History / Comment(s): lung ca Medications and Allergies Home Medications Medication Instructions Recorded Confirmed Type LORazepam [Ativan] 2 mg PO BID PRN 10/25/13 05/04/21 History Albuterol Inhaler (Mhu) [Ventolin 2 puff INHALATION DIRECTED PRN 09/04/18 05/04/21 History Hfa Inhaler (Mhu)] Omeprazole [PriLOSEC] 20 mg PO BID 09/04/18 05/04/21 History predniSONE 5 mg PO DAILY 09/04/18 05/04/21 History Ibuprofen [Motrin Ib] 400 mg PO Q8HR PRN 09/21/18 05/04/21 History Meloxicam 7.5 mg PO DAILY 10/09/20 05/04/21 History Tofacitinib Citrate [Xeljanz] 5 mg PO BID 10/09/20 05/04/21 History traZODone HCL 50 mg PO HS 10/09/20 05/04/21 History Cyclobenzaprine [Flexeril] 10 mg PO TID PRN 04/30/21 05/04/21 History Docusate Sodium [Dok] 100 mg PO BID 04/30/21 05/04/21 History Allergies Allergy/AdvReac Type Severity Reaction Status Date / Time adhesive tape Allergy took layer Verified 05/04/21 10:33 of skin off Penicillins Allergy Unknown Verified 05/04/21 10:33 Childhood Sulfa (Sulfonamide Allergy Unknown Verified 05/04/21 10:33 Antibiotics) Childhood Surgical - Exam Vital Signs Temp Pulse Resp BP Pulse Ox 98.5 F 76 18 148/92 97 05/04/21 10:43 05/04/21 10:43 05/04/21 10:43 05/04/21 10:43 05/04/21 10:43 Physical exam: General: Well-developed, well-nourished HEENT: Normocephalic, sclerae nonicteric Abdomen: Nontender, nondistended Extremities: No edema Neuro: Alert and oriented Results - Labs Abnormal Lab Results - Last 24 Hours (Table) 05/04/21 Range/Units 10:52 POC Glucose (mg/dL) 100 H (75-99) mg/dL Assessment and Plan (1) Colon cancer screening Narrative/Plan: Will proceed with colonoscopy at this time. Current Visit: Yes Status: Acute Code(s): Z12.11 - ENCOUNTER FOR SCREENING FOR MALIGNANT NEOPLASM OF COLON SNOMED Code(s): 543828672
--- NOTE | 2021-05-04 11:41 | P.PCN ---
Date of Procedure: 05/04/21 Procedure(s) Performed: PREOPERATIVE DIAGNOSIS: Colon cancer screening POSTOPERATIVE DIAGNOSIS: Normal exam PROCEDURE: Colonoscopy ANESTHESIA: MAC SURGEON: Daniel Silver M.D. SPECIMENS: None ENDOSCOPIC PROCEDURE: The patient was placed on the endoscopy table in the left decubitus position. The Olympus colonoscope was inserted into the anus and passed under direct visualization to the base of the cecum. The appendiceal orifice was visualized. From that point the scope was slowly withdrawn inspecti ng all surfaces carefully. There were no neoplastic inflammatory or polypoid lesions throughout the cecum, ascending, transverse, descending, sigmoid and rectum. There was no visible diverticulosis noted. Digital rectal examination was normal. The patient was taken to the recovery room in stable condition per anesthesia guidelines. RECOMMENDATIONS: Resume diet. Follow-up colonoscopy 10 years.
[2021-05-04 12:09] VITALS: BP 117/72; PULSE 67; RESP 18
== END ==
LOC: ORWHC2ENDO 10:02
PROVIDERS: ATTEND Surgery
DX: Z12.11 Encounter for screening for malignant neoplasm of colon (principal); J45.909 Unspecified asthma, uncomplicated; F41.1 Generalized anxiety disorder; M79.7 Fibromyalgia; M06.9 Rheumatoid arthritis, unspecified; F41.0 Panic disorder [episodic paroxysmal anxiety]; Z90.49 Acquired absence of other specified parts of digestive tract; Z98.1 Arthrodesis status; Z98.890 Other specified postprocedural states; Z80.9 Family history of malignant neoplasm, unspecified; Z86.19 Personal history of other infectious and parasitic diseases; Z80.1 Family history of malignant neoplasm of trachea, bronchus and lung; Z98.891 History of uterine scar from previous surgery; Z90.710 Acquired absence of both cervix and uterus; Z85.3 Personal history of malignant neoplasm of breast; G62.2 Polyneuropathy due to other toxic agents; K21.9 Gastro-esophageal reflux disease without esophagitis; M19.90 Unspecified osteoarthritis, unspecified site; K58.9 Irritable bowel syndrome, unspecified; Z79.52 Long term (current) use of systemic steroids; Z79.899 Other long term (current) drug therapy; Z88.0 Allergy status to penicillin; Z88.2 Allergy status to sulfonamides; Z91.09 Other allergy status, other than to drugs and biological substances
CPT/HCPCS: J2704; G0121

== ENCOUNTER → 2023-05-29 | Outpatient (CLI) | payer OTHER ==
--- NOTE | 2023-05-29 08:56 | MM ---
Reason for Exam: Hx of breast cancer, conservation therapy. Last mammogram was performed 1 year(s) and 1 month(s) ago. Patient History: Menarche at age 16. First Full-Term at age 26. Postmenopausal. Breast cancer, right, age 52. Previous chest radiation therapy at age 52. Previous chemotherapy at age 52. 09/06/2018, Lumpectomy on the Right side. 09/06/2018, Lumpectomy on the Right side. 10/15/2020, Benign Core Biopsy on the right side. 09/06/2018, Malignant Core Biopsy on the right side. 08/13/2018, Malignant Core Biopsy on the right side. 2019, Radiation Therapy on the right side. 2019, Chemotherapy. Tissue Density: There are scattered areas of fibroglandular density. Findings: Analyzed By CAD. Right breast biopsy clip. No new suspicious masses, calcifications or distortions. Overall Assessment: Probably benign, BI-RAD 3 Management: Screening Mammogram of both breasts in 1 year. Results were given to the patient verbally at the time of exam. Patient should continue monthly self-breast exams. A clinical breast exam by your physician is recommended on an annual basis. This exam should not preclude additional follow-up of suspicious palpable abnormalities. Note on Rimma scores and lifetime risk: 1. A Rimma score greater than 3% is considered moderate risk. If this is the case, consider specialist referral to assess eligibility for a risk reducing agent. 2. If overall lifetime risk for the development of breast cancer is 20% or higher, the patient may qualify for future screening with alternating mammogram and breast MRI. Electronically signed and approved by: Gianfranco Tellez DO
== END | disposition home or self-care (01) ==
LOC: RADMAMWWP 08:06
PROVIDERS: ATTEND Radiology Radiation Oncology
DX: Z08 Encounter for follow-up examination after completed treatment for malignant neoplasm (principal); R92.323 Mammographic fibroglandular density, bilateral breasts; Z85.3 Personal history of malignant neoplasm of breast; Z78.0 Asymptomatic menopausal state
CPT/HCPCS: 77062; 77066

== ENCOUNTER → 2024-05-08 | Outpatient (CLI) | payer OTHER ==
--- NOTE | 2024-05-08 15:17 | US ---
EXAMINATION TYPE: US venous doppler duplex LE RT DATE OF EXAM: 05/08/2024 2:40 PM COMPARISON: NONE CLINICAL INDICATION: Female, 58 years old with history of R60.0 LOCALIZED EDEMA; pain and edema, Pain TECHNIQUE: The lower extremity deep venous system is examined utilizing real time linear array sonog jad with graded compression, color doppler sonography, and spectral doppler. SIDE PERFORMED: Right FINDINGS: VESSELS IMAGED: Common Femoral Vein Deep Femoral Vein Greater Saphenous Vein * Femoral Vein Popliteal Vein Small Saphenous Vein * Proximal Calf Veins (* superficial vessels) Right Leg: Negative for DVT, Color Doppler imaging shows patency of the vessels. Spectral waveforms are within normal limits. IMPRESSION: 1. Right lower extremity ultrasound negative for deep venous thrombosis. [facility], , 05/08/2024 3:15 PM
[2024-05-08 19:21] LABS: Basophils # (A) 0.04 X 10*3/uL (0.00-0.10); Basophils % (A) 0.8 %; Eosinophils # (A) 0.07 X 10*3/uL (0.04-0.35); Eosinophils % (A) 1.3 %; HCT 41.1 % (37.2-46.3); HGB 13.2 g/dL (12.0-15.0); Lymphocytes # (A) 0.75 X 10*3/uL (0.90-5.00); Lymphocytes % (A) 14.3 %; MCHC 32.1 g/dL (32.0-37.0); MCV 90.3 FL (80.0-97.0); Mean Platelet Volume 11.2 FL (9.5-12.2); Monocytes # (A) 0.31 X 10*3/uL (0.20-1.00); Monocytes % (A) 5.9 %; NRBC Per 100 WBC 0 X 10*3/uL (0.00-0.01); Neutrophils # (A) 4.06 X 10*3/uL (1.80-7.70); Neutrophils % (A) 77.5 %; Platelet Count 248 X 10*3/uL (140-440); RBC 4.55 X 10*6/uL (4.10-5.20); RDW 12.8 % (11.5-14.5); WBC 5.24 X 10*3/uL (4.50-10.00)
[2024-05-08 19:32] LABS: ALT 11 U/L (8-44); AST 22 U/L (13-35); Albumin 4.3 g/dL (3.8-4.9); Albumin/Globulin Ratio 1.59 Ratio (1.60-3.17); Alkaline Phosphatase 85 U/L (41-126); Bilirubin, Conjugated 0.35 mg/dL (0.20-0.40); Bilirubin,Unconjugated 0.55 mg/dL (0.20-1.00); Globulin 2.7 g/dL (1.6-3.3); Total Bilirubin 0.9 mg/dL (0.3-1.2)
== END | disposition home or self-care (01) ==
LOC: RADUSWWP 14:23
PROVIDERS: ATTEND Family Medicine
DX: R60.0 Localized edema (principal); M79.661 Pain in right lower leg
CPT/HCPCS: 80076; 82565; 85025